=== PATIENT | female | born 1965 | race Caucasian/White ===

== ENCOUNTER 2020-02-06 15:32 | Outpatient (CLI) | payer OTHER ==
[~2020-02-06 15:32] MED LIST: Iopamidol-370 76% 500 ML 1 ML ONE
--- NOTE | 2020-02-06 16:25 | CT ---
CT Abdomen Pelvis W Con History: Nausea and vomiting with abdominal pain Comparison: None. Findings: Lung bases are clear. No pericardial effusion. Prior cholecystectomy. Diffuse hepatic steatosis. Spleen is unremarkable along with pancreas. Normal proximal small bowel rotation. No retroperitoneal periaortic adenopathy. Moderate facet arthrosis at L4/L5 with grade 1 anterolisthesis. No hydronephrosis. Multiple left-sided renal parapelvic cysts. No abnormal enhancing renal mass. The aortoiliac contour is nonaneurysmal. No retroperitoneal periaortic adenopathy. There is abnormal mass within the appendiceal tip with enlargement without periappendiceal inflammati on. Impression: 1. 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 Surgical consultation advised. No adjacent adenopathy. 2. Multiple left-sided renal parapelvic cysts. 3. No acute inflammatory process within the abdomen or pelvis.
== END 2020-02-06 15:33 | disposition home or self-care (01) ==
LOC: BICCT 15:32
PROVIDERS: ATTEND Internal Medicine Gastroenterology
DX: R11.2 Nausea with vomiting, unspecified (principal); N28.1 Cyst of kidney, acquired; K38.8 Other specified diseases of appendix
CPT/HCPCS: 74177; Q9967

== ENCOUNTER 2020-02-26 07:42 | Outpatient (CLI) | payer OTHER ==
[2020-02-26 10:50] LABS: #Basophils 0.1 thou/uL (0.0-0.2); #Eosinphils 0.3 thou/uL (0.0-0.7); #Lymphocytes 2.9 thou/uL (1.20-3.40); #Monocytes 0.5 thou/uL (0.11-0.59); #Neutrophils 5.6 thou/uL (1.40-6.50); %Basophils 1.4 % (0.0-1.0); %Eosinophils 3.6 % (0.0-10.0); %Lymphocytes 30.4 % (21.0-51.0); %Monocytes 5.5 % (0.0-10.0); Hemoglobin 13.7 g/dL (12.0-16.0); Mean Corpuscular HGB CONC 34.1 g/dL (32.0-36.0); Mean Corpuscular Hemoglobin 30.7 pg (27.0-31.0); Mean Corpuscular Volume 90.1 fL (78.0-98.0); Mean Platelet Volume 8.3 fL (7.4-10.4); Platelet Count 271 thou/uL (130-400); RBC Distribution Width 13.4 % (11.5-14.5); Red Blood Cell (RBC) Count 4.46 mill/uL (4.20-5.40); White Blood Cell (WBC) Count 9.4 thou/uL (4.8-10.8)
[2020-02-26 13:04] LABS: Anion Gap 17 mmol/L (10-20); BUN (Urea Nitrogen) 12 mg/dL (9.8-20.1); Calc. Creatinine Clearance 0 mL/min (70-130); Calcium 9.1 mg/dL (7.8-10.44); Carbon Dioxide 25 mmol/L (22-29); Chloride 104 mmol/L (98-107); Estimated GFR-MDRD 73; Glucose 95 mg/dL (70-105); Potassium 4.2 mmol/L (3.5-5.1); Sodium 142 mmol/L (136-145)
--- NOTE | 2020-02-26 15:02 | EKG ---
Test Reason : PREOP Blood Pressure : / mmHG Vent. Rate : 053 BPM Atrial Rate : 053 BPM P-R Int : 162 ms QRS Dur : 080 ms QT Int : 458 ms P-R-T Axes : 056 029 029 degrees QTc Int : 429 ms Sinus bradycardia Low voltage QRS Borderline ECG No previous ECGs available Confirmed by MAIKEL MIKE (2) on 02/26/2020 3:01:37 PM Referred By: Shane AVERY Confirmed By:MAIKEL MIKE
[2020-02-26 17:26] LABS: SARS-CoV-2 MS2 Positive; SARS-CoV-2 N Gene Negative; SARS-CoV-2 S Gene Negative; SARS-CoV-2 by NAA Not Detected (NotDetected); SARS-CoV-2 orf1ab Negative
== END 2020-02-26 07:43 | disposition home or self-care (01) ==
LOC: LABBT 07:42
PROVIDERS: ATTEND Surgery
DX: Z01.818 Encounter for other preprocedural examination (principal); Z20.828 Contact with and (suspected) exposure to other viral communicable diseases; K38.8 Other specified diseases of appendix
CPT/HCPCS: 80048; 85025; 87635; 93005; 93010; U0003

== ENCOUNTER 2020-02-29 08:35 | Day surgery (SDC) | payer OTHER ==
[2020-02-28 13:18] VITALS: BMI 29.0
[2020-02-29] MEDS ORDERED: cefOXitin Sodium/Dextrose 2 GM/50 ML BAG ONE (08:47)
[2020-02-29] MEDS ORDERED: Bupivacaine/Epinephrine 0.25% 30 ML VIAL ONE (09:06)
[2020-02-29] MEDS ORDERED: Fentanyl 100 MCG/2 ML VIAL ONE ×3 (09:30→12:36)
[2020-02-29] MEDS ORDERED: Promethazine HCl 25 MG/ML VIAL ONE (09:56)
[2020-02-29] MEDS ORDERED: Dexamethasone 20 MG/5 ML VIAL ONE (10:05)
[2020-02-29] MEDS ORDERED: Rocuronium Bromide 10 MG/ML (10ML VIAL) ONE (10:05)
[2020-02-29] MEDS ORDERED: PROPOFOL 200 MG/20 ML VIAL ONE (10:05)
[2020-02-29] MEDS ORDERED: Labetalol HCl 100 MG/20 ML VIAL ONE (10:05)
[2020-02-29] MEDS ORDERED: Ondansetron PF 4 MG/2 ML Vial ONE ×2 (10:05→12:21)
[2020-02-29] MEDS ORDERED: Lidocaine 1% PF 5 ML VIAL ONE (10:05)
[2020-02-29] MEDS ORDERED: Ketorolac Tromethamine 30 MG/ML VIAL ONE (10:05)
[2020-02-29] MEDS ORDERED: Midazolam HCl 2 mg/2 ml Vial ONE (10:16)
[2020-02-29] MEDS ORDERED: SUGAMMADEX SODIUM 200 MG/2 ML VIAL ONE (11:20)
[2020-02-29] MEDS ORDERED: HYDROmorphone 0.5 MG/0.5 ML SYRINGE ONE (13:31)
[2020-02-29] MEDS ORDERED: HYDROcodone/Acetaminophen 5/325 mg Tablet ONE (14:54)
--- NOTE | 2020-03-03 14:23 | OP ---
DATE OF PROCEDURE: 02/29/2020 PREOPERATIVE DIAGNOSIS: Appendiceal mass. POSTOPERATIVE DIAGNOSIS: Appendiceal mass. PROCEDURE PERFORMED: Laparoscopic appendectomy. ANESTHESIA: General. ESTIMATED BLOOD LOSS: Minimal. COMPLICATIONS: None. SPECIMEN: Appendix. FINDINGS: Chronic inflammatory change of the appendix. No significant appendiceal mass seen grossly. TECHNIQUE: The patient was taken to the operating room and laid supine on the operating room table. After general anesthetic was obtained, a Boyle was placed. The abdomen was shaved, prepped, and draped in a sterile fashion. A straight incision was made above the umbilicus. Cautery was used to dissect down to and score the fascia. Abdominal cavity was entered bluntly using a Naty clamp. Holding stitch of PDS was placed on each side of fascia. A Chantal trocar was placed. High-flow pneumoperitoneum obtained. A suprapubic 5-mm port in the left lower quadrant and 5-mm port were placed under direct visualization. The cecum was rolled over to reveal the appendix. The colon was mobilized along the white line of Toldt, bringing the appendix up from its retroperitoneal location. A window was made at the base of the appendix in the mesoappendix. A laparoscopic stapler was fired across the base of appendix. The mesentery for the appendix was taken using a reload on the stapler. The appendix was placed in EndoCatch bag and brought out through the Chantal. There was no obvious mucinous involvement of the peritoneum. No obvious significant mass to the appendix. No bleeding on the staple line. The abdomen and pelvis were irrigated. All port sites were infiltrated using local anesthetic. All ports were removed under camera visualization. Pneumoperitoneum was let down. PDS was used to close the fascial defect above the umbilicus. Incisions were irrigated and closed using 4-0 Monocryl and Dermabond. The patient was en route to Recovery. All instrument counts, needle counts, and lap counts were correct. Job ID: [id number]
== END 2020-02-29 15:45 | disposition home or self-care (01) ==
LOC: SDC 08:35
PROVIDERS: ATTEND Surgery
PROC: 0DTJ4ZZ Resection of Appendix, Percutaneous Endoscopic Approach (ICD-10-PCS; principal; 2020-02-29)
DX: K38.8 Other specified diseases of appendix (principal); M19.90 Unspecified osteoarthritis, unspecified site; R73.03 Prediabetes; I10 Essential (primary) hypertension; E78.5 Hyperlipidemia, unspecified; I82.0 Budd-Chiari syndrome; E03.9 Hypothyroidism, unspecified; M79.7 Fibromyalgia; Z86.14 Personal history of Methicillin resistant Staphylococcus aureus infection; Z79.899 Other long term (current) drug therapy; Z88.5 Allergy status to narcotic agent; Z91.048 Other nonmedicinal substance allergy status
CPT/HCPCS: 88304; 88313; 88342; J0694; J1100; J1170; J1885; J2250; J2405; J2550; J2704; J3010

== ENCOUNTER 2020-03-26 07:23 | Outpatient (CLI) | payer OTHER ==
--- NOTE | 2020-03-26 13:15 | NM ---
EXAM: NM Gastric Empty Scan W/Meal DATE: 03/26/2020 7:45 AM INDICATION: Nausea with vomiting COMPARISON: None. FINDIN.9 mCi of technetium 99m sulfur colloid orally was administered by mouth with egg. There was 27% emptying at 1 hour. There was 67% emptying at 2 hours. There is 89% emptying at 3 hours . There was 100% emptying at 4 hours. The time to one half emptying is 98 minutes. IMPRESSION:Gastric emptying evaluation as above. Slightly prolonged time to one half emptying at 98 m inutes.
== END 2020-03-26 07:24 | disposition home or self-care (01) ==
LOC: NM 07:23
PROVIDERS: ATTEND Internal Medicine Gastroenterology
DX: R11.10 Vomiting, unspecified (principal)
CPT/HCPCS: 78264; A9541